=== PATIENT | female | born 1970 | race African-American/Black ===

== ENCOUNTER 2024-05-24 08:17 | Outpatient (CLI) | payer OTHER, SELFPAY ==
--- NOTE | ~2024-05-24 | XR_ITS ---
XR wrist RT 2V Ordering provider: Beatriz Long PA-C History: . M25.531 - Pain in right wrist X 1 WK, INJURY APRIL 2024 . Comparison: None. FINDINGS: BONES: No acute fracture or dislocation. No definite scaphoid fracture. JOINT SPACES: Normal. SOFT TISSUES: Normal. IMPRESSION: No acute osseous abnormality right wrist. Reviewed, dictated and finalized at location A. TREASURY CONSULTANT
--- OUTSIDE RECORDS SUMMARY | 2024-05-30 05:27 | XMS_ITS | Encounter Summary ---
Author Organization [facility] Facility Care Team Providers Care Sander Operator Name Role Phone Wilfredo Parham MD Primary Care Provider [phone] Unknown, Notinfile Primary Care Provider Unavail able Encounter Details Date Type Department Care Team (Latest Contact Info) Description 05/09/2017 Orders Only [facility] CLINCONV ProviderZehra MD [address] [place] [address] Social History Tobacco Use Types Packs/Day Years Used Date Smoking Tobacco: Never Assessed Comments Unknown Sex and Gender Information Value Date Recorded Sex Assigned at Not on file Legal Sex Female 10:24 PM LABVIEW PROGRAMMER Gender Identity Not on file Sexual Orientation Not on file documented as of this encounter Plan of Treatment Not on file documented as of this encounter Procedures Procedure Name Priority Date/Time Associated Diagnosis Comments SCAN - PATHOLOGY 05/26/2017 12:0 0 AM LABVIEW PROGRAMMER documented in this encounter Results * SCAN - PATHOLOGY (05/26/2017 12:00 AM LABVIEW PROGRAMMER) Narrative 05/26/2017 12:00 AM LABVIEW PROGRAMMER Ordered by an unspecified provider. Historical Provider Final Res ult documented in this encounter Visit Diagnoses Not on filedocumented in this encounter Care Teams Sander Operator Relationship Specialty Start Date End Date Wilfredo Parham MD [address] [facility] [address] [address] PCP - General Internal Medicine 01/21/20 05/20/24 Unknown, Notinfile PCP - General 05/21/24 documented as of this encounter
--- OUTSIDE RECORDS SUMMARY | 2024-05-30 05:27 | XMS_ITS | Referral Summary ---
Author Organization [facility] Address [address] [place] [address] Care Team Providers Care Commercial Litigation Paralegal Name Role Phone Unknown, Notinfile Primary Care Provider Unavail able Encounters Date Type Department Care Team Description 05/21/2024 10:05 AM [facility] - 05/21/2024 12:40 PM [facility] Emergency [facility] Emergency Department [facility] [place], [place] [address] Discharge Disposition: Left without being seen from Last 3 Months Allergies No known active allergies Medications amLODIPine (NORVASC) 10 mg tablet Take 10 mg by mouth daily Active carvediloL (COREG) 6.25 mg tablet Take 1 tablet by mouth 2 (two) times a day 01/05/2020 Active omega 3-kgo-ckt-fish oil 1,000 mg (120 mg-180 mg) capsule Take 1 capsule by mouth daily Active cholecalciferol (VITAMIN D-3) 2000 unit capsule Take 2,000 Units by mouth daily Active varenicline (CHANTIX) 1 mg tabletIndicatio ns:Smoking Cessation Take 1 tablet (1 mg total) by mouth 2 (two) times a day Take with full glass of water. 60 tablet 4 02/12/2020 Active cyclobenzaprine (FLEXERIL) 10 mg tablet Take 1 tablet (10 mg total) by mouth 2 (two) times a day as needed for muscle spasms 20 tablet 10/29/2021 Active naproxen (NAPROSYN) 500 mg tablet Take 1 tablet (500 mg total) by mouth 2 (two) times a day with meals 30 tablet 10/24/2022 Active Active Problems Problem Noted Date Diagnosed Date Hypertension, essential 02/12/2020 Assessment & Plan (02/12/2020 4:07 PM CDT): Continue current medications. Discussed low-salt diet. Discussed exercise on regular basis. Will continue to monitor Rib pain on left side 02/12/2020 Assessment & Plan (02/12/2020 4:07 PM CDT): Physical exam is unremarkable. She she will continue with ibuprofen and will obtain left ribcage x-ray Hip pain, chronic, left 02/12/2020 Assessment & Plan (02/12/2020 4:07 PM CDT): Exam is unremarkable and she will obtain left hip x-ray for further evaluation Pulmonary nodules 02/12/2020 Assessment & Plan (02/12/2020 4:07 PM CDT): The patient said that in May [address] scan of the chest that showed 2 small pulmonary nodules and was told to repeat the test in 1 year. Will arrange that when we see her again in few months Smoking 02/12/2020 Assessment & Plan (02/12/2020 4:08 PM CDT): Discussed smoking cessation and different methods to help with that. Discussed the risks of smoking including COPD, CAD and lung cancer etc. patient said that she tried Chantix in the past and it worked for her. Will start her back on Chantix and side effects were explained and we will evaluate her again in few months Immunizations Name Administration Dates Next Due Tdap 02/12/2020 Social History Tobacco Use Types Packs/Day Years Used Date Smoking Tobacco: Every Day Cigarettes 1 14 Smokeless Tobacco: Never Alcohol Use Standard Drinks/Week Comments Yes 0 (1 standard drink = 0.6 oz pur e alcohol) socially PHQ-2 Answer Date Recorded PHQ-2 Total Score (If total score is 3 or more points, staff should administer the PHQ-9) 0 02/12/2020 Personal Safety Answer Date Recorded Have you ever been in or are you currently in a harmful physical or emotional relationship or is someone making you feel afraid or unsafe? Denies 05/21/2024 Comments No Sex and Gender Information Value Date Recorded Sex Assigned at Not on file Legal Sex Female 10:24 PM CONFIGURATION CONSULTANT Gender Identity Not on file Sexual Orientation Not on file Last Filed Vital Signs Vital Sign Reading Time Taken Comments Blood Pressure 154/100 05/21/2024 10:23 AM CONFIGURATION CONSULTANT Pulse 62 05/21/2024 10:23 AM CONFIGURATION CONSULTANT Temperature 36.6 ??C (97.9 ??F) 05/21/2024 1 0:23 AM CONFIGURATION CONSULTANT Respiratory Rate 18 05/21/2024 10:2 3 AM CONFIGURATION CONSULTANT Oxygen Saturation 100% 05/21/2024 10: 23 AM CONFIGURATION CONSULTANT Inhaled Oxygen Concentration - - Weight 105.9 kg (233 lb 7.5 oz) 025 10:23 AM CONFIGURATION CONSULTANT Height 172.7 cm (5' 8 ) 05/21/2024 10:2 3 AM CONFIGURATION CONSULTANT Body Mass Index 35.5 05/21/2024 10:23 AM CONFIGURATION CONSULTANT Plan of Treatment Not on file Procedures Procedure Name Priority Date/Time Associated Diagnosis Comments SCREENING MAMMOGRAM BILATERAL W DON Schedule Routine, Read Routine (OP Routine) 03/05/2020 10:14 AM CDT Breast cancer screening by mammogram THINPREP PAP Routine 06/26/2014 10:15 AM CONFIGURATION CONSULTANT from Last 3 Months or Most Recently Relevant to Health Maintenance Results * Screening Mammogram Bilateral W Don (03/05/2020 10:14 AM CDT) Anatomical Region Laterality Modality Breast Bilateral Mammography 03/05/2020 11:0 5 AM CDT Narrative 03/05/2020 1:06 PM CDT Patient Name: MARITA CAMACHO ?Ordering Dr: Wilfredo Parham MD ?? D.O.B: 1970 ? Exam Date: 10/20 ?? 1014 ?? Age: 49 ?Sex: Female ? MR#: [id number] ?? Loc: ? RADIOLOGY REPORT ?? Order #[id number] ?? [facility] ? Epifanio Bilat Screening 3D ? Signed ?- MG ?? BILATERAL DIGITAL SCREENING MAMMOGRAM 3D/2D WITH MEDIOLATERAL OBLIQUE ?? CRANIOCAUDAL: 03/05/2020 ?? The study was acquired using full field digital technology and interpreted from ?soft copy. ?2D digital mammographic views, as well as 3D digital tomosynthesis were ?? performed in the CC and MLO projections. ? CLINICAL: Baseline mammogram. Patient denies any problems. Mother with breast ?? cancer. No personal history of breast cancer. ? COMPARISONS: No prior exams were available for comparison. ? BREAST TISSUE: There are scattered areas of fibroglandular density. ? FINDINGS: ?? An oval mass with circumscribed margins measuring approximately 7 ?? mm is identified at approximately the 9 o'clock position of the right breast 9 ?? cm from the nipple. ??No other suspicious findings seen in the right breast ?? mammogram. ??No suspicious findings are identified in the left breast on ?? mammogram. ? IMPRESSION: BI-RAD 0 ??ADDITIONAL IMAGING EVALUATION NEEDED ?? 1. Indeterminate oval mass measuring approximately 7 mm at the 9 o'clock ?? position of the right breast 9 cm from the nipple. ??Further evaluation with ?? right unilateral breast sonogram is recommended. ? 2. No suspicious findings in the left breast on mammogram. ??Annual screening ?? mammography recommended. ? The patient has been or will be contacted. ? Electronically signed by: ?Feng Ellis ? rl/:03/05/2020 13:06:12 ? Fire Management Specialist: Trina Munoz, [facility] ?? letter sent: Additional Imaging ? Reading location: ?? BI-RADS: 0 Additional Imaging Evaluation Needed ? REPORT ELECTRONICALLY SIGNED IN OTHER VENDOR SYSTEM ?? Resulting Agency Comment O Procedure Note Feng Morton MD - 03/05/2020 Patient Name: MARITA CAMACHO Dr: Wilfredo Parham MD DSamyO.B: 1970 Exam Date: 03/05/20 1014 Age: 49 Sex: Female MR#: [id number] Loc: [facility]#: [id number] RADIOLOGY REPORT Order #[id number] [facility] Epifanio Bilat Screening 3D Signed - MG BILATERAL DIGITAL SCREENING MAMMOGRAM 3D/2D WITH MEDIOLATERAL OBLIQUE CRANIOCAUDAL: 03/05/2020 The study was acquired using full field digital technology andinterpreted from soft copy. 2D digital mammographic views, as well as 3D digital tomosynthesis were performed in the CC and MLO projections. CLINICAL: Baseline mammogram. Patient denies any problems. Mother withbreast cancer. No personal history of breast cancer. COMPARISONS: No prior exams were available for comparison. BREAST TISSUE: There are scattered areas of fibroglandular density. FINDINGS: An oval mass with circumscribed margins measuringapproximately 7 mm is identified at approximately the 9 o'clock position of the rightbreast 9 cm from the nipple. No other suspicious findings seen in the rightbreast mammogram. No suspicious findings are identified in the left breast on mammogram. IMPRESSION: BI-RAD 0 ADDITIONAL IMAGING EVALUATION NEEDED 1. Indeterminate oval mass measuring approximately 7 mm at the 9 o'clock position of the right breast 9 cm from the nipple. Further evaluationwith right unilateral breast sonogram is recommended. 2. No suspicious findings in the left breast on mammogram. Annualscreening mammography recommended. The patient has been or will be contacted. Electronically signed by: Feng Ellis rl/:03/05/2020 13:06:12 Fire Management Specialist: Trina Munoz, [facility] letter sent: Additional Imaging Reading location: BI-RADS: 0 Additional Imaging Evaluation Needed REPORT ELECTRONICALLY SIGNED IN OTHER VENDOR SYSTEM Wilfredo Parham MD [facility] [place] PROCEDURES Final Result * ThinPrep Pap (06/26/2014 10:15 AM CONFIGURATION CONSULTANT) Thin Prep Pap Smear SEE BELOW () 07/01 5:41 PM CONFIGURATION CONSULTANT [facility] HISTORICAL RESULTS Comment: Hydro Plant Operator ThinPrep Cytology Final Report ? ThinPrep Pap Specimen Source ? Cervix/Endocervix ?? Specimen Adequacy ? Satisfactory for interpretation, endocervical cells ?? (transformation zone) not present. ?? Interpretation ? 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 ?? 06/30/14 Drilling Assistant: JULISA Shannon(ASCP) ?Reviewed by: Justino LR ?? 07/01/14 ?Verified By: Chata Frye M.D. ? electronic signature ?? [facility], Department of Pathology ?? For questions regarding this case, ?? call ext. [phone] ?? CPT Code(s) ? 53816 / 45484 ?? Comments ?? -------- ?? For women with LSIL cytology and no HPV test or a positive ?? HPV test, colposcopy is recommended. If co-testing shows ?? HPV-negative LSIL, repeat co-testing at 1 year is ?? preferred, but colposcopy is acceptable. If repeat ?? co-testing at 1 year is elected, and if the cytology is ?? ASCUS or worse or the HPV test is positive (ie, if the ?? co-testing result is other than HPV negative, cytology ?? negative), colposcopy is recommended. If the co-testing ?? result at 1 year is HPV negative and cytology negative, ?? repeat co-testing after an additional 3 years is ?? recommended. If all tests are negative at that time, ?? routine screening is recommended. ??2012 Updated Guidelines ?? for the Management of Abnormal Cervical Cancer Screening ?? Tests and Cancer Precursors. J Low Genit Tract Dis. 2013 ?? Apr;17(5 Suppl 1):S1-S27. ?? Fellow ?? ------ ?? Cody Rivers D.O. ?? Clinical History ? Clinical Information: ?? LMP: NONE ?? : Y ?? : N ?? IUD: N ?? Hormone Therapy: N ?? Postmenopausal: N ?? Previous surgery date and type: N ?? Hysterectomy: N ?? Chemotherapy: N ?? [place] Exposure: N ?? Radiation: N ?? Previous Abnormal Pap? Details: N ?? Diagnostic or Screening Pap Test: Screening ?? Performed by [employer], ?? [address], [facility] [place] [address] ?? [email or web address] (by [email or web address]), Cy Vergara MD - Lab. Director ?? 06/26/2014 10:1 5 AM CONFIGURATION CONSULTANT 06/26/2014 1:44 PM CONFIGURATION CONSULTANT Tony Sawant MD LAB PATHOLOGY ORDERABLES F inal Result [facility] HISTORICAL RESULTS from Last 3 Months or Most Recently Relevant to Health Maintenance Insurance [facility] Care Teams Commercial Litigation Paralegal Relationship Specialty Start Date End Date Unknown, Notinfile PCP - General 05/21/24
--- OUTSIDE RECORDS SUMMARY | 2024-05-30 05:27 | XMS_ITS | Patient Health Record ---
Author Organization [facility] Address [address] [place], [place] [id number] Care Team Providers Care Microelectronics Engineer Name Role Phone SUE FAUSTIN Unavailable [phone] Rafael Strong Unavailable Unavailable Reason For Referral No Information Medications Medication SIG (Take, Route, Frequency, Duration) Notes Start Date End Date Status terbinafine hydrochloride 10 MG/ML Topical Cream CUTANEOUS terbinafine hydrochloride 10 MG/ML Topical CreamOriginal Medicationterbinafine hydrochloride 10 MG/ML Topical Cream *Reorder from [facility] for eRx and Interaction Alerts* 03/27/2015 Active naftifine hydrochloride 0.01 MG/MG Topical Gel [Naftin] CUTANEOUS naftifine hydrochloride 0.01 MG/MG Topical Gel [Naftin]Original Medicationnaftifine hydrochloride 0.01 MG/MG Topical Gel [Naftin] *Reorder from [facility] for eRx and Interaction Alerts* 04/21/2015 Active clotrimazole 10 MG/ML Topical Solution clotrimazole 10 MG/ML Topical SolutionOriginal Medicationclotrimazole 10 MG/ML Topical Solution *Reorder from [facility] for eRx and Interaction Alerts* 03/27/2015 Active Plan Of Treatment No Information Insurance Providers Payer Name Payer Address Payer Phone Subscriber Number Group Number Insured Name Patient Relationship to Insured Coverage Start Date Coverage End Date [employer] [address] ROBI LINDER [phone] [id number] PERRI Rogers Self - patient is the insured
--- OUTSIDE RECORDS SUMMARY | 2024-05-30 05:27 | XMS_ITS | Clinical Summary ---
Author Organization [facility] Address [address] [place] [address] Care Team Providers Care Hand Etcher Helper Name Role Phone Unknown, Notinfile Primary Care Provider Unavail able Allergies No known active allergies Medications amLODIPine (NORVASC) 10 mg tablet Take 10 mg by mouth daily Active carvediloL (COREG) 6.25 mg tablet Take 1 tablet by mouth 2 (two) times a day 01/05/2020 Active omega 2-bpp-yhs-fish oil 1,000 mg (120 mg-180 mg) capsule [...] will evaluate her again in few months Encounters Date Type Department Care Team Description 05/21/2024 10:05 AM BIG DATA ANALYTICS LEAD - 05/21/2024 12:40 PM [facility] Emergency [facility] Emergency Department [address] [place] [address] Discharge Disposition: Left without being seen from Last 3 Months Immunizations Name Administration Dates Next Due Tdap 02/12/2020 Surgical History Surgery Date Site/Laterality Comments HYSTERECTOMY 05/08/2016 - 05/07/2017 Medical History Medical History Date Comments Hypertension Vaginal fibroids Family History Medical History Relation Name Comments Hypertension Father Stroke Father Breast cancer Mother Diabetes Mother Hypertension Mother Relation Name Status Comments Father Mother Alive Social History Tobacco Use Types Packs/Day Years [...] on file Legal Sex Female 10:24 PM BIG DATA ANALYTICS LEAD Gender Identity Not on file Sexual Orientation Not on file Obstetrics History Last Filed Vital Signs Vital Sign Reading Time Taken Comments Blood Pressure 154/100 05/21/2024 10:23 AM BIG DATA ANALYTICS LEAD Pulse 62 05/21/2024 10:23 AM BIG DATA ANALYTICS LEAD Temperature 36.6 ??C (97.9 ??F) 05/21/2024 1 0:23 AM BIG DATA ANALYTICS LEAD Respiratory Rate 18 05/21/2024 10:2 3 AM BIG DATA ANALYTICS LEAD Oxygen Saturation 100% 05/21/2024 10: 23 AM BIG DATA ANALYTICS LEAD Inhaled Oxygen Concentration - - Weight 105.9 kg (233 lb 7.5 oz) 025 10:23 AM BIG DATA ANALYTICS LEAD Height 172.7 cm (5' 8 ) 05/21/2024 10:2 3 AM BIG DATA ANALYTICS LEAD Body Mass Index 35.5 05/21/2024 10:23 AM BIG DATA ANALYTICS LEAD Plan of Treatment Health Maintenance Due Date Last Done Comments Colon Cancer Screening-Colonoscopy 1970 Hepatitis C Screening 1970 Pneumococcal vaccine <65 (1 of 2 - PCV) 1978 Hepatitis B Screening 1990 Regular Well Visit/Exam 18-64 1990 Depression Screening 02/11/2021 02/12/2020 Breast Cancer Screening-Mammogram 03/05/2021 020 Zoster Vaccine (1 of 2) 2022 Influenza Vaccine (#1) 2024 DTaP/Tdap/Td Vaccine (2 - Td or Tdap) 02/11/203011/2019 Cervical Cancer Screening Discontinued 06/26/2014 Procedures Procedure Name Priority Date/Time Associated Diagnosis Comments SCREENING MAMMOGRAM BILATERAL W DON Schedule Routine, Read Routine (OP Routine) 03/05/2020 10:14 AM CDT Breast cancer screening by mammogram THINPREP PAP Routine 06/26/2014 10:15 AM BIG DATA ANALYTICS LEAD from Last 3 Months or Most Recently Relevant to Health Maintenance Results * Screening Mammogram Bilateral W Don (03/05/2020 10:14 AM CDT) Anatomical Region Laterality Modality Breast Bilateral Mammography 03/05/2020 11:0 5 AM CDT Narrative 03/05/2020 1:06 PM CDT Patient Name: MARTIA CAMACHO ?Ordering Dr: Wilfredo Parham MD ?? D.O.B: 1970 ? Exam Date: 03/05/20 ?? 1014 ?? Age: 49 ?Sex: Female ? MR#: [id number] ?? Loc: ? RADIOLOGY REPORT ?? Order #[id number] ?? [facility] ? Epifanio Bilat Screening 3D ? Signed [...] by: ?Feng Ellis ? rl/:03/05/2020 13:06:12 ? Mortgage Loan Closer: Trina Munoz, [facility] ?? letter sent: Additional Imaging ? Reading location: ?? BI-RADS: 0 Additional Imaging Evaluation Needed ? REPORT ELECTRONICALLY SIGNED IN OTHER VENDOR SYSTEM ?? Resulting Agency Comment O Procedure Note Feng Morton MD - 03/05/2020 Patient Name: MARITA CAMACHO Dr: Wilfredo Parham MD D.O.B: 1970 Exam Date: 03/05/20 1014 Age: 49 Sex: Female MR#: [id number] Loc: RADIOLOGY REPORT Order #[id number] [facility] Bilat Screening 3D Signed - MG BILATERAL [...] Electronically signed by: Feng Ellis rl/:03/05/2020 13:06:12 Mortgage Loan Closer: Trina Munoz, [facility] letter sent: Additional Imaging Reading location: BI-RADS: 0 Additional Imaging Evaluation Needed REPORT ELECTRONICALLY SIGNED IN OTHER VENDOR SYSTEM Wilfredo Parham MD IMG MAMMO PROCEDURES Final Result * ThinPrep Pap (06/26/2014 10:15 AM BIG DATA ANALYTICS LEAD) Thin Prep Pap Smear SEE BELOW () 07/01 5:41 PM BIG DATA ANALYTICS LEAD [facility] HISTORICAL RESULTS Comment: Parking Meter Attendant ThinPrep Cytology Final Report ? ThinPrep Pap Specimen Source ? Cervix/Endocervix ?? Specimen Adequacy ? Satisfactory for interpretation, endocervical cells ?? (transformation zone) not present. ?? Interpretation ? 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 ?? 06/30/14 Air Hose Coupler: Meka Gallego, CT(ASCP) ?Reviewed by: Justino LR ?? 07/01/14 ?Verified By: Chata Fyre M.D. ? electronic signature ?? [facility], Department of Pathology ?? For questions regarding this case, ?? call ext. [phone] ?? CPT Code(s) ? 62011 / 95391 ?? Comments ?? -------- ?? For women [...] that time, ?? routine screening is recommended. ??2011 Updated Guidelines ?? for the Management of [...] Screening Pap Test: Screening ?? Performed by [facility], ?? [address] [place] [address] ?? [email or web address], Cy Vergara MD - Lab. Director ?? 06/26/2014 10:1 5 AM BIG DATA ANALYTICS LEAD 06/26/2014 1:44 PM BIG DATA ANALYTICS LEAD Tony Sawant MD LAB PATHOLOGY ORDERABLES F inal Result [facility] HISTORICAL RESULTS from Last 3 Months or Most Recently Relevant to Health Maintenance Insurance [facility] Care Teams Hand Etcher Helper Relationship Specialty Start Date End Date Unknown, Notinfile PCP - General 05/21/24
--- OUTSIDE RECORDS SUMMARY | 2024-05-30 05:27 | XMS_ITS ---
Author Organization [facility] Address [address] [place], [place] [id number] Care Team Providers Care Husbandry Technician Name Role Phone SUE SCOTT [phone] Rafael Strong Unavailable REASON FOR VISIT blisters on ft and between toes Encounters Encounter Location Date Provider Diagnosis [facility] [address] [place], [place] [phone] 02/14/2024 SUE SCOTT Plan Of Treatment No Information Progress Notes * PERRI ROGERS EDOB:[birth year] (54 yo F)Acc No.[id number]:02/14/2024 Progress Notes Patient:?PERRI ROGERS Provider:?Sue Scott DPM :1970???Age:53 Y???Sex:Female D ate:02/14/2024 Address:[address] [place], [place] [id number] Subjective: * Chief Complaints: * ???1. Blisters on ft and bet ween toes. * Medical History:? Objective: * Vitals:? Assessment: Plan: * Treatment: * Billing Information: * Visit Code:? * Procedure Codes:? * Electronic signature of DIGNA LOO DPM on 05/30/2024 at 05:26 AM RETAIL WIRELESS SALES REPRESENTATIVE Sign off status: Pending * Provider:?Sue Scott DPM Date:?01/2024 Generated for Alyssa alfonso/Matias/Sunilitting on:?05/30/2024 05:26 AM RETAIL WIRELESS SALES REPRESENTATIVE
== END 2024-05-24 08:18 | disposition home or self-care (01) ==
LOC: ANHIMG 08:21
PROVIDERS: PCP Family Medicine; Visit Provider Student in an Organized Health Care Education/Training Program
DX: M25.531 Pain in right wrist (principal); R29.898 Other symptoms and signs involving the musculoskeletal system; S69.91XA Unspecified injury of right wrist, hand and finger(s), initial encounter; X58.XXXA Exposure to other specified factors, initial encounter
CPT/HCPCS: 73100